=== PATIENT | female | born 1960 | race American Indian/Alaskan Native ===

== ENCOUNTER 2017-04-16 13:47 | Outpatient (CLI) | payer OTHER ==
--- NOTE | 2017-04-18 07:47 | Mammography Report ---
Screening mammogram: Routine views are compared to prior exams in 2013 and 2015. There is an intermediate fibroglandular density pattern with a symmetric and diffuse distribution. In the lateral projection there is a central density which may be in the medial breast on the CC view which is not identified on prior 2 exams. The remainder the breast pattern is otherwise unchanged and unremarkable bilaterally. CAD used. Impression: Right breast asymmetry. Recommendation: Additional compression imaging of the right breast and ultrasound as needed. BI-RADS CATEGORY: 0 = Needs additional imaging evaluation ACR BI-RADS MAMMOGRAPHIC CODES: 0 = Needs additional imaging evaluation; 1 = Negative; 2 = Benign; 3 = Probably benign; 4 = Suspicious; 5 = Malignant; 6 = Known biopsy-proven malignancy COMMENT: 1. Dense breast tissue, i.e., adenosis, fibrocystic changes, etc., may obscure an underlying neoplasm. 2. Approximately 10% of cancers are not detected with mammography. 3. A negative mammography report should not delay biopsy if a clinically suspicious mass is present.
== END 2017-04-16 13:48 | disposition home or self-care (01) ==
LOC: MAMMO 13:47
PROVIDERS: ATTEND Internal Medicine
DX: Z12.31 Encounter for screening mammogram for malignant neoplasm of breast (principal)
CPT/HCPCS: 77067

== ENCOUNTER 2017-05-22 08:20 | Outpatient (CLI) | payer OTHER ==
--- NOTE | 2017-05-22 09:29 | Mammography Report ---
Spot compression magnification view and 90degrees lateral of density abutting the right breast: Findings: There is no distinct mass or microcalcification noted. Asymmetry is again identified at the right breast on CC compression view however not seen on MLO compression view and 90degrees lateral. Sonographic examination reveals no cystic or solid mass. Impression: Benign findings. Annual followup with mammogram recommended. BI-RADS CATEGORY: 2 = Benign ACR BI-RADS MAMMOGRAPHIC CODES: 0 = Needs additional imaging evaluation; 1 = Negative; 2 = Benign; 3 = Probably benign; 4 = Suspicious; 5 = Malignant; 6 = Known biopsy-proven malignancy COMMENT: 1. Dense breast tissue, i.e., adenosis, fibrocystic changes, etc., may obscure an underlying neoplasm. 2. Approximately 10% of cancers are not detected with mammography. 3. A negative mammography report should not delay biopsy if a clinically suspicious mass is present. COMMENT: Patient follow-up letters are generated in [employer].
== END 2017-05-22 08:21 | disposition home or self-care (01) ==
LOC: US 08:20
PROVIDERS: ATTEND Family Medicine
DX: R92.8 Other abnormal and inconclusive findings on diagnostic imaging of breast (principal)

== ENCOUNTER 2019-05-15 12:52 | Outpatient (CLI) | payer OTHER | END 2019-05-15 12:53 | disposition home or self-care (01) | LOC: MAMMO 12:52 | PROVIDERS: ATTEND General Practice | DX: Z12.31 Encounter for screening mammogram for malignant neoplasm of breast (principal) | CPT/HCPCS: 77067 ==

== ENCOUNTER 2021-03-02 08:26 | Outpatient (CLI) | payer OTHER ==
--- NOTE | 2021-03-02 15:41 | Mammography Report ---
DIGITAL DIAGNOSTIC MAMMOGRAM WITH CAD , 03/02/2021 CLINICAL INFORMATION / INDICATION: The patient reports generalized intermittent bilateral breast pain and heaviness for 8 months. TECHNIQUE: Digital bilateral mammographic imaging was performed. This examination was interpreted with the benefit of Computer-aided Detection analysis. COMPARISON: 05/15/2019, 04/16/2017 FINDINGS: Breast Density: There are scattered areas of fibroglandular density. No dominant mass, suspicious calcifications or architectural distortion in either breast. IMPRESSION: No mammographic evidence of malignancy. Follow up recommendation: Routine yearly BI-RADS Category 1: NEGATIVE. A "normal" or negative report should not discourage follow up or biopsy of a clinically significant f inding. A written summary of these findings will be mailed to the patient. The patient will be entered into a mammography reporting system which will generate a reminder letter for the patient's next appointmen t at the appropriate interval. According to the [employer], yearly mammograms are recommended starting at age 40 and continuing as long as a woman is in good health. Breast MRI is recommended for women with an erin roximately 20-25% or greater lifetime risk of breast cancer, including women with a strong family his tory of breast or ovarian cancer and women who have been treated for Hodgkin's disease. Signer Name: Annika Oro MD Signed: 03/02/2021 3:36 PM Workstation Name: [id number] [facility]
== END 2021-03-02 08:27 | disposition home or self-care (01) ==
LOC: MAMMO 08:26
PROVIDERS: ATTEND General Practice
DX: N64.4 Mastodynia (principal); R92.8 Other abnormal and inconclusive findings on diagnostic imaging of breast
CPT/HCPCS: 77066